=== PATIENT | female | born 1980 | race Caucasian/White ===

== ENCOUNTER 2017-07-17 16:07 | Outpatient (CLI) ==
--- NOTE | 2017-07-18 05:43 | DI ---
EXAM: Chest, two views, 07/17/2017 HISTORY: Asthma COMPARISON: None FINDINGS / IMPRESSION: Cardiomediastinal countours appear within normal limits. There is no focal p ulmonary consolidation. No pleural effusion or pneumothorax. No acute cardiopulmonary process.
== END 2017-07-17 16:08 | disposition home or self-care (01) ==
LOC: RAD 16:07
PROVIDERS: ATTEND Family Medicine
DX: J45.20 Mild intermittent asthma, uncomplicated (principal); R07.89 Other chest pain

== ENCOUNTER 2018-05-30 15:04 | Outpatient (CLI) ==
--- NOTE | 2018-05-30 16:12 | US ---
EXAM: Limited abdominal ultrasound. History: Abdominal pain with nausea and vomiting. Technique: Multiple sonographic images through the abdomen were obtained. Color duplex Doppler was used to interrogate vascular flow. Findings: The visualized pancreas demonstrates no gross abnormality. No abdominal ascites. The liver is not e nlarged according to the sonographic measurement given. There is antegrade flow within the main port al vein. No focal liver lesions identified sonographically. Limited visualization of the right kidn ey demonstrates no evidence for hydronephrosis. Gallbladder sludge. There is some ring down artifact within the gallbladder. Portions of the gallbl adder wall are thickened. Common bile duct measures 0.4 cm in caliber. Impression: 1. Gallbladder sludge and gallbladder wall thickening. Findings are indeterminate for cholecystitis . Consider correlation with HIDA scan. 2. 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
== END 2018-05-30 15:05 | disposition home or self-care (01) ==
LOC: RAD 15:04
PROVIDERS: ATTEND Family Medicine
DX: R10.11 Right upper quadrant pain (principal)

== ENCOUNTER 2018-06-01 08:07 | Outpatient (CLI) ==
--- NOTE | 2018-06-01 10:43 | NM ---
EXAM: Hepatobiliary imaging HISTORY: Abdominal pain, nausea and vomiting COMPARISON: Limited abdominal ultrasound on 05/30/2018 showed gallbladder sludge and wall thickening. TECHNIQUE: Patient was injected 5 mCi of technetium 99m Choletec intravenously. Anterior scintigraph ic images of the right upper quadrant region of the abdomen were obtained up to 1 hour interval. Pat ient was subsequently infused 2 mcg of Kinevac intravenously. FINDINGS: There is normal visualization of liver, gallbladder, bile duct and small bowel loops. Gall bladder ejection fraction is 99%. IMPRESSION: Normal study
== END 2018-06-01 08:08 | disposition home or self-care (01) ==
LOC: RAD 08:07
PROVIDERS: ATTEND Family Medicine
DX: R10.11 Right upper quadrant pain (principal)